=== PATIENT | female | born 1930 | race Two or more races ===

== ENCOUNTER 2016-10-08 12:30 | Emergency (ER) | payer MEDICARE, BC, MEDICAID ==
[~2016-10-08] VITALS: Ht 152.4 cm; Wt 56.2 kg
[2016-10-08 12:40] VITALS: BP 176/82
[2016-10-08] MEDS ORDERED: NYSTATIN100000 UN1 ORAL (12:44)
[2016-10-08] MEDS ORDERED: FOLIC ACID1 MG GT (12:44)
[2016-10-08] MEDS ORDERED: VITAMIN B-121000 MCG PO (12:44)
[2016-10-08] MEDS ORDERED: DONEPEZIL HCL5 M2 ORAL (12:44)
[2016-10-08] MEDS ORDERED: OMEPRAZOLE40 M1 GT (12:44)
[2016-10-08] MEDS ORDERED: NUTREN 1.5250 ML GT (12:46)
[2016-10-08] MEDS ORDERED: MULTIVITAMINS1 EAC2 GT (12:46)
--- NOTE | 2016-10-08 13:12 | Emergency Room Report ---
History of Present Illness General Chief Complaint: General Complaint Source: Family Member, Medical Record, EMS Present Illness HPI Patient is an 86-year-old female brought in by ambulance after the G-tube malfunction. Patient was noted to have a prior history of colostomy placement after infection her colon. The patient was to be seen by GI for G-tube replacement. [facility]Patient was noted to be awake and able to talk. Allergies: Coded Allergies: No Known Allergies (Unverified , 10/08/16) Patient History Past Medical History: see triage record Reviewed Nursing Documentation: PMH: Agreed, PSxH: Agreed Nursing Documentation-PMH Hx Cardiac Problems: Yes - chf Hx Hypertension: Yes Review of Systems All Other Systems: negative except mentioned in HPI Physical Exam Vital Signs Date Time Temp Pulse Resp B/P Pulse Ox O2 Delivery O2 Flow Rate FiO2 10/08/16 12:32 97.9 78 16 176/82 98 Room Air Sp02 EP Interpretation: reviewed, normal General Appearance: normal inspection, well appearing, no apparent distress, alert Head: atraumatic ENT: normal ENT inspection, hearing grossly normal, normal voice Neck: normal inspection, full range of motion, supple, no bony tend Respiratory: normal inspection, lungs clear, normal breath sounds, no respiratory distress, no retraction, no wheezing Cardiovascular #1: regular rate, rhythm, no edema Gastrointestinal: normal inspection, normal bowel sounds, non tender, soft, no guarding, no hernia, other - colostomy placement Genitourinary: no CVA tenderness Musculoskeletal: normal inspection, back normal, normal range of motion Neurologic: normal inspection, alert, oriented x3, responsive, chief technician III-XII nml as tested, speech normal Psychiatric: normal inspection, judgement/insight normal, mood/affect normal Skin: normal inspection, normal color, no rash Medical Decision Making Diagnostic Impression: Primary Impression: Gastrostomy malfunction ER Course The patient presented for gastrostomy malfunction. Patient noted have a G-tube with approximately 4 cm of the present a tube outside the stoma. Patient was sent in by Dr. Villasenor for G-tube replacement. Dr. Torres was contacted for GI consult by Dr. Villasenor. G-tube was replaced by GI. Post procedure x-ray showed adequate G-tube placement with contrast in the stomach as well as in the duodenum. The patient will be discharged back to her nursing facility. Last Vital Signs Date Time Temp Pulse Resp B/P Pulse Ox O2 Delivery O2 Flow Rate FiO2 10/08/16 12:40 97.9 16 176/82 98 Room Air 10/08/16 12:32 78 Status: improved Disposition: HOME, SELF-CARE Condition: Stable Referrals: TATYANA HAN (PCP) Harsh Mancia Oct 08, 2016 13:12
--- NOTE | 2016-10-08 13:49 | GI Initial Consult Note ---
Riddhi Martinez NDivya 10/08/16 1349: History of Present Illness General Date patient seen: Oct 08, 2016 Time patient seen: 13:47 Reason for Hospitalization: General Complaint Referring physician: FRITZ Reason for Consultation: GT MALFUNCTION / REPLACEMENT Present Illness HPI Patient is an 86-year-old female brought in by ambulance after the G-tube malfunction. Patient was noted to have a prior history of colostomy placement after infection her colon. The patient was to be seen by GI for G-tube replacement. Patient had been [facility].Patient was noted to be awake and able to talk. GI CONSULT: HPI as noted above. GI consulted for evaluation of GT. Pt seen in ER, awake A&Ox4 NAD. GT site assessed; port has been cut off, however base intact with stopper in place. Minimal drainage and redness noted around site. No general complaints per patient. Home Meds Reported Medications Nutritional Supplement (NUTREN 1.5) 250 Ml Liquid, 250 ML GT, ML 10/08/16 Multivitamins* (MULTIVITAMINS*) 1 Each Tablet, 1 TAB GT DAILY, TAB 0 Refills 10/08/16 Omeprazole (OMEPRAZOLE) 40 Mg Capsule.dr, 40 MG GT DAILY, CAP 10/08/16 Nystatin* (NYSTATIN*) 100,000 Unit/1 Ml Oral.susp, 5 ML ORAL FOUR TIMES A DAY, ML Swish in the mouth and retain for as long as possible (several minutes) before swallowing 10/08/16 Folic Acid* (FOLIC ACID*) 1 Mg Tablet, 1 MG GT DAILY, TAB 10/08/16 Donepezil Hcl* (DONEPEZIL HCL*) 5 Mg Tab.rapdis, 5 MG ORAL DAILY, TAB 10/08/16 Cyanocobalamin (Vitamin B-12) (VITAMIN B-12) 1,000 Mcg Tablet, 1000 MCG PO DAILY , TAB 10/08/16 Med list reviewed/reconciled: Yes Allergies: Coded Allergies: No Known Allergies (Unverified , 10/08/16) Patient History PMH Narrative Past Medical History: see triage record Reviewed Nursing Documentation: PMH: Agreed, PSxH: Agreed Nursing Documentation-PMH Hx Cardiac Problems: Yes - chf Hx Hypertension: Yes Social History: Denies: alcohol use, drug use, other, smoking Review of Systems All Other Systems: negative except mentioned in HPI Physical Exam Vital Signs Date Time Temp Pulse Resp B/P Pulse Ox O2 Delivery O2 Flow Rate FiO2 10/08/16 12:32 97.9 78 16 176/82 98 Room Air Sp02 EP Interpretation: reviewed General Appearance: well appearing, no apparent distress, alert Head: normocephalic Neck: supple Respiratory: normal breath sounds, no respiratory distress Cardiovascular: normal rate Gastrointestinal: normal inspection, soft, gt - port cut off, other - gt site area c/d/i Neurologic: alert Skin: normal inspection, normal color, no rash, warm/dry Lymphatic: normal inspection, no adenopathy GI: Plan Problems: (1) Gastrostomy malfunction Plan GT 20 fr replaced by bedside. ordered KUB + Gastrografin to confirm placement. okay for DC after confirmation. Seen with Dr. Urena. Thank you for referring this patient. JAIME URENA 10/13/16 1223: History of Present Illness General Reason for Hospitalization: General Complaint Present Illness Home Meds Reported Medications Nutritional Supplement (NUTREN 1.5) 250 Ml Liquid, 250 ML GT, ML 10/08/16 Multivitamins* (MULTIVITAMINS*) 1 Each Tablet, 1 TAB GT DAILY, TAB 0 Refills 10/08/16 Omeprazole (OMEPRAZOLE) 40 Mg Capsule.dr, 40 MG GT DAILY, CAP 10/08/16 Nystatin* (NYSTATIN*) 100,000 Unit/1 Ml Oral.susp, 5 ML ORAL FOUR TIMES A DAY, ML Swish in the mouth and retain for as long as possible (several minutes) before swallowing 10/08/16 Folic Acid* (FOLIC ACID*) 1 Mg Tablet, 1 MG GT DAILY, TAB 10/08/16 Donepezil Hcl* (DONEPEZIL HCL*) 5 Mg Tab.rapdis, 5 MG ORAL DAILY, TAB 10/08/16 Cyanocobalamin (Vitamin B-12) (VITAMIN B-12) 1,000 Mcg Tablet, 1000 MCG PO DAILY , TAB 10/08/16 Allergies: Coded Allergies: No Known Allergies (Unverified , 10/08/16) GI: Plan Plan The patient was seen and examined at bedside and all new and available data was reviewed in the patients chart. I agree with the above findings, impression and plan. (Patient seen earlier today. Signature stamp does not reflect patient encounter time.). -Gloria Campbell MDh Bautista Calderón Oct 08, 2016 13:49 JAIME URENA Oct 13, 2016 12:23
--- NOTE | 2016-10-08 15:47 | Diagnostic Imaging Report ---
Indication: Status post gastrostomy replacement Technique: Supine view of the abdomen after injection of water-soluble contrast into gastrostomy Comparison: none Findings: Contrast opacifies the stomach. No contrast extravasation is demonstrated. The bowel gas pattern is unremarkable. There are cholecystectomy clips Impression: Satisfactory position of gastrostomy tube
[2016-10-08 16:09] VITALS: BP 120/70
--- NOTE | 2016-10-08 21:08 | History and Physical Report ---
DATE OF ADMISSION: 10/08/2016 CHIEF COMPLAINT: Malfunctioning G-tube. HISTORY OF PRESENT ILLNESS: This is an 86-year-old female from [facility]. The patient's G-tube has been cut short. She has been sent to this hospital for replacement of the gastrostomy tube by Dr. Torres. PAST MEDICAL HISTORY: 1. Organic brain syndrome. 2. Hypertensive cardiovascular disease. 3. 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 4. History of septicemia. 5. 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 6. Anemia of chronic disease. MEDICATIONS: Tylenol as needed, multivitamin, folic acid, vitamin D, vitamin B12, clonidine every six hours hours as needed SBP more than 160, Aricept. ALLERGIES: No known drug allergies. SOCIAL HISTORY: Unable to obtain secondary to mental status. FAMILY HISTORY: Unable to obtain secondary to mental status. REVIEW OF SYSTEMS: Unable to obtain secondary to mental status. PHYSICAL EXAMINATION: GENERAL: This is an elderly female, who is in no acute distress. VITAL SIGNS: Blood pressure 110/60, pulse 80 and regular, respirations 20, and temperature 98. HEENT: Head is normocephalic. She has very poor dentition. NECK: Supple. Trachea midline. There was no lymphadenopathy or thyromegaly. LUNGS: Clear to auscultation and percussion. HEART: Regular rate and rhythm without rubs, murmurs, or gallops. ABDOMEN: Soft and nontender. The G-tube is cut short. Bowel sounds were active. She has a colostomy to the right of the G-tube EXTREMITIES: No clubbing, cyanosis, or edema. NEUROLOGIC: The patient is alert but nonverbal. There were no gross focal findings. LABORATORY AND ANCILLARY DATA: Pending. ASSESSMENT: 1. Nonfunctioning gastrostomy tube. 2. Organic brain syndrome. 3. Hypertensive cardiovascular disease. 4. 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 5. History of septicemia. 6. 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 7. Anemia of chronic disease. PLAN: 1. Admit. 2. G-tube replacement by Dr. Torres. 3. Continue intermediate medications. Stacie Gonzales M.D. DR: Rosales JOB#: [id number] CC:
== END 2016-10-08 16:09 | disposition home or self-care (01) ==
LOC: EDBD 12:30 → EMR 13:00 → CANBEDREQ 13:47 → EMR 16:09
DX: K94.23 Gastrostomy malfunction (principal); Y83.3 Surgical operation with formation of external stoma as the cause of abnormal reaction of the patient, or of later complication, without mention of misadventure at the time of the procedure; F09 Unspecified mental disorder due to known physiological condition; I11.9 Hypertensive heart disease without heart failure; I10 Essential (primary) hypertension; I50.9 Heart failure, unspecified; Z93.3 Colostomy status; D63.8 Anemia in other chronic diseases classified elsewhere; Z86.718 Personal history of other venous thrombosis and embolism
CPT/HCPCS: 43760; 74000; 99284; Q9963